=== PATIENT | male | born 1960 ===

== ENCOUNTER 2018-09-01 11:02 | Outpatient (REF) | payer MEDICAID, SELFPAY ==
[2018-09-01 22:39] LABS: Cholesterol 232 mg/dL (50-200); HDL Cholesterol 28 mg/dL (40-60); LDL CHOLESTEROL 103 mg/dL (<100); Triglyceride 579 mg/dL (30-150)
[2018-09-01 22:47] LABS: COMMENT (LAB VIEW ONLY) 116.36 mg/dL
[2018-09-01 23:14] LABS: Hemoglobin A1C 10.9 % (4.5-6.2)
== END 2018-09-01 11:22 ==
LOC: NCHCN 11:02
PROVIDERS: PCP Internal Medicine; Visit Provider Internal Medicine
DX: E11.9 Type 2 diabetes mellitus without complications (principal)
CPT/HCPCS: 80061; 83721; 82043; 82570; 83036

== ENCOUNTER 2019-08-30 11:56 | Outpatient (REF) | payer MEDICAID, SELFPAY ==
[2019-08-30 20:59] LABS: ALT 31 U/L (16-63); AST 15 U/L (15-37); Albumin 4.1 g/dL (3.4-5.0); Alkaline Phosphatase 96 U/L (46-116); Anion Gap 6.3 mmol/L (3-11); BUN 26 mg/dL (7-18); Bilirubin, Total 0.3 mg/dL (0.2-1.0); CO2 28.7 mmol/L (21.0-32.0); CREATININE 1.49 mg/dL (0.70-1.30); Calcium 9.1 mg/dL (8.5-10.1); Chloride 101 mmol/L (98-107); Estimated GFR 48.11 (mL/min/1.73m2); Glucose 322 mg/dL (74-106); Potassium 4.9 mmol/L (3.5-5.1); Sodium 136 mmol/L (136-145); TSH (W/Ref FT4) 2.95 uIU/mL (0.36-3.74); Total Protein 7.1 g/dL (6.4-8.2)
[2019-08-30 21:27] LABS: Cholesterol 188 mg/dL (<200); HDL Cholesterol 28 mg/dL (40-60); Triglyceride 469 mg/dL (<150)
[2019-08-30 22:09] LABS: LDL CHOLESTEROL 86 mg/dL (<100)
== END 2019-08-30 12:16 ==
LOC: NCHCN 11:56
PROVIDERS: PCP Internal Medicine; Visit Provider Family Medicine
DX: E11.9 Type 2 diabetes mellitus without complications (principal); E03.9 Hypothyroidism, unspecified; I10 Essential (primary) hypertension
CPT/HCPCS: 80053; 80061; 83721; 84443

== ENCOUNTER 2020-01-19 20:54 | Outpatient (REF) | payer MEDICAID, SELFPAY ==
[2020-01-19 21:56] LABS: COMMENT (LAB VIEW ONLY) 60.17 mg/dL; Microalb ug/mg Crea 20.4 ug/mg Cr
== END 2020-01-19 21:14 ==
LOC: NCHCN 20:54
PROVIDERS: PCP Internal Medicine; Visit Provider Nurse Practitioner Family
DX: I10 Essential (primary) hypertension (principal); N18.30 Chronic kidney disease, stage 3 unspecified; E11.9 Type 2 diabetes mellitus without complications; E66.9 Obesity, unspecified
CPT/HCPCS: 82043; 82570

== ENCOUNTER 2020-06-04 16:53 | Outpatient (REF) | payer MEDICAID, SELFPAY ==
[2020-06-07 12:48] LABS: Testosterone, Total 328 ng/dL (240-950)
== END 2020-06-04 16:54 | disposition home or self-care (01) ==
LOC: NCHCN 16:53
PROVIDERS: PCP Internal Medicine; Visit Provider Internal Medicine
DX: E03.9 Hypothyroidism, unspecified (principal)
CPT/HCPCS: 84402; 84403

== ENCOUNTER 2021-05-20 21:17 | Outpatient (REF) | payer MEDICAID, SELFPAY ==
[2021-05-20 21:17] LABS: Microalb ug/mg Crea 25.9 ug/mg Cr
[2021-05-20 21:18] LABS: Anion Gap 9.2 mmol/L (3-11); BUN 18 mg/dL (7-18); CO2 25.8 mmol/L (21.0-32.0); CREATININE 1.2 mg/dL (0.70-1.30); Calcium 8.6 mg/dL (8.5-10.1); Calculated LDL 65 mg/dL (<100); Chloride 106 mmol/L (98-107); Cholesterol 171 mg/dL (<200); Glucose 166 mg/dL (74-106); HDL Cholesterol 31 mg/dL (40-60); Potassium 4.9 mmol/L (3.5-5.1); Sodium 141 mmol/L (136-145); Triglyceride 377 mg/dL (<150)
[2021-05-21 12:40] LABS: TSH 2.73 uIU/mL (0.36-3.74)
== END 2021-05-20 21:18 | disposition home or self-care (01) ==
LOC: NCHCN 21:17
PROVIDERS: PCP Internal Medicine; Visit Provider Internal Medicine
DX: E03.9 Hypothyroidism, unspecified (principal); N18.30 Chronic kidney disease, stage 3 unspecified; E11.9 Type 2 diabetes mellitus without complications; I10 Essential (primary) hypertension
CPT/HCPCS: 80048; 80061; 82043; 82570; 84443

== ENCOUNTER 2022-04-10 17:23 | Outpatient (REF) | payer MEDICAID, SELFPAY ==
[2022-04-10 22:20] LABS: COMMENT (LAB VIEW ONLY) 42.63 mg/dL; Microalb ug/mg Crea 28.6 ug/mg Cr
== END 2022-04-10 17:24 | disposition home or self-care (01) ==
LOC: NCHCN 17:23
PROVIDERS: PCP Internal Medicine; Visit Provider Internal Medicine
DX: E11.9 Type 2 diabetes mellitus without complications (principal)
CPT/HCPCS: 82043; 82570

== ENCOUNTER 2023-05-08 14:46 | Outpatient (REF) | payer MEDICAID, SELFPAY ==
--- OUTSIDE RECORDS SUMMARY | 2023-05-08 14:48 | XMS_ITS | CCD ---
Author Name Unknown Address [address] [place] [address] [phone] Organization Unknown Address [address] [place] [address] [phone] Care Team Providers Care Client Program Manager Name Role Phone PANKAJ VILLALOBOS Attending Physician [phone] Vital Signs Unknown or Not Available. Allergies Allergy Code Allergy Type Reaction Status No Known Drug Allergies 0 No known drug allergies Active Procedures Unknown or Not Available. History of Immunizations Unknown or Not Available. Problems Unknown or Not Available. Results Unknown or Not Available. Active Medications Unknown or Not Available. Medications Administered During Visit Unknown or Not Available. Encounters Encounter Diagnosis Diagnosis Code Start Date Other intervertebral disc displacement, lumbar r egion [id number] 02/18/2023 Social History Smoking Status Code Start Date End Date Never smoker [id number] Patient Decision Aids Unknown or Not Available. Discharge Instructions You were admitted to [facility] on 02/18/2023 13:26 with a principal diagnosis of Other intervertebral disc displacement, lumbar region You were discharged from [facility] on 02/18/2023 13:26 Should you have any questions prior to discharge, please contact a member of your healthcare team. If you have left the hospital and have any questions, please contact your primary care physician. Chief Complaint and Reason For Visit Chief Complaint Date of Onset LT LEG WEAKNESS Function Status Unknown or Not Available. Plan of Care Unknown or Not Available. Referral/Transition of Care Unknown or Not Available.
--- OUTSIDE RECORDS SUMMARY | 2023-05-08 14:49 | XMS_ITS | CCD ---
Author Name Unknown Address [address] [place] [address] [phone] Organization Unknown Address [address] [place] [address] [phone] Care Team Providers Care Vacation Sales Advisor Name Role Phone PANKAJ VILALLOBOS Attending Physician [phone] Vital Signs Unknown or Not Available. Allergies [...] Encounters Encounter Diagnosis Diagnosis Code Start Date Disorder of lumbar disc [id number] 03/19/20 23 Social History Smoking Status Code Start Date End Date Never smoker [id number] Patient Decision Aids Unknown or Not Available. Discharge Instructions You were admitted to [facility] on 03/19/2023 13:24 with a principal diagnosis of Other intervertebral disc disorders, lumbar region You were discharged from [facility] on 03/19/2023 13:24 Should you have any questions prior to discharge, please contact a member of your healthcare team. If you have left the hospital and have any questions, please contact your primary care physician. Chief Complaint and Reason For Visit Unknown or Not Available. Function Status Unknown or Not Available. Plan of Care Unknown or Not Available. Referral/Transition of Care Unknown or Not Available.
[2023-05-08 21:12] LABS: HCT 42.2 % (40.0-50.0); HGB 14.4 g/dL (13.5-17.5); MCH 29.4 pg (27.0-33.0); MCHC 34.1 % (32.0-36.0); MCV 86 fL (80-95); MPV 12.2 fL (8.0-11.0); Platelet Count 163 10^3/uL (130-400); RBC 4.89 10^6/uL (4.36-5.78); RDW 13.2 % (11.8-14.1); RDW-SD 41.3 fL; WBC 5.99 10^3/uL (4.4-10.8)
[2023-05-08 21:24] LABS: ALT 26 U/L (16-63); AST 14 U/L (15-37); Albumin 3.7 g/dL (3.4-5.0); Alkaline Phosphatase 122 U/L (46-116); Anion Gap 4.6 mmol/L (3-11); BUN 25 mg/dL (7-18); Bilirubin, Total 0.3 mg/dL (0.2-1.0); CO2 29.4 mmol/L (21.0-32.0); CREATININE 1.3 mg/dL (0.70-1.30); Calcium 8.9 mg/dL (8.5-10.1); Chloride 103 mmol/L (98-107); Cholesterol 162 mg/dL (<200); Estimated GFR 61.35 (mL/min/1.73m2); Glucose 349 mg/dL (74-106); HDL Cholesterol 34 mg/dL (40-60); Potassium 4.5 mmol/L (3.5-5.1); Sodium 137 mmol/L (136-145); Total Protein 6.9 g/dL (6.4-8.2); Triglyceride 402 mg/dL (<150)
[2023-05-08 21:37] LABS: COMMENT (LAB VIEW ONLY) 54.91 mg/dL; Microalb ug/mg Crea 32.8 ug/mg Cr
[2023-05-08 21:38] LABS: LDL CHOLESTEROL 64 mg/dL (<100)
== END 2023-05-08 14:47 | disposition home or self-care (01) ==
LOC: NCHCN 14:46
PROVIDERS: PCP Internal Medicine; Visit Provider Internal Medicine
DX: E11.9 Type 2 diabetes mellitus without complications (principal)
CPT/HCPCS: 80053; 80061; 83721; 85027; 82043; 82570

== ENCOUNTER 2023-05-21 09:50 | Outpatient (REF) | payer MEDICAID, SELFPAY ==
[2023-05-21 15:20] LABS: ALT 25 U/L (16-63); AST 12 U/L (15-37); Albumin 3.8 g/dL (3.4-5.0); Alkaline Phosphatase 129 U/L (46-116); Anion Gap 11.9 mmol/L (3-11); BUN 21 mg/dL (7-18); Bilirubin, Total 0.4 mg/dL (0.2-1.0); CO2 27.1 mmol/L (21.0-32.0); CREATININE 1.4 mg/dL (0.70-1.30); Calcium 8.8 mg/dL (8.5-10.1); Chloride 103 mmol/L (98-107); Estimated GFR 56.13 (mL/min/1.73m2); Glucose 338 mg/dL (74-106); Potassium 4.5 mmol/L (3.5-5.1); Sodium 142 mmol/L (136-145); Total Protein 6.8 g/dL (6.4-8.2)
[2023-05-21 15:35] LABS: Vitamin D 25 Total 39.8 ng/mL (30-100)
[2023-05-21 17:06] LABS: GGT 36 U/L (15-85)
== END 2023-05-21 09:51 | disposition home or self-care (01) ==
LOC: NCHCN 09:50
PROVIDERS: PCP Internal Medicine; Visit Provider Internal Medicine
DX: R74.8 Abnormal levels of other serum enzymes (principal)
CPT/HCPCS: 80053; 82306; 82977

== ENCOUNTER 2023-07-01 08:42 | Outpatient (REF) | payer MEDICAID, SELFPAY ==
[2023-07-01 15:00] LABS: Alkaline Phosphatase 126 U/L (46-116); TSH 6.78 uIU/Ml (0.36-3.74)
[2023-07-03 17:47] LABS: ALT 26 U/L (16-63); AST 11 U/L (15-37); Albumin 3.8 g/dL (3.4-5.0); Alkaline Phosphatase 130 U/L (46-116); Bilirubin, Direct 0.1 mg/dL (0.0-0.2); Bilirubin, Total 0.3 mg/dL (0.2-1.0); Total Protein 6.7 g/dL (6.4-8.2)
[2023-07-06 09:57] LABS: PSA, Screening 0.6 ng/mL (<=4.5)
[2023-07-06 10:03] LABS: Parathyroid Hormone,Intact 55 pg/mL (19-88)
== END 2023-07-01 08:43 | disposition home or self-care (01) ==
LOC: NCHCN 08:42
PROVIDERS: PCP Internal Medicine; Visit Provider Internal Medicine
DX: R74.8 Abnormal levels of other serum enzymes (principal); Z12.5 Encounter for screening for malignant neoplasm of prostate; E03.9 Hypothyroidism, unspecified
CPT/HCPCS: 80076; 84153; 83970; 84075; 84100; 84443

== ENCOUNTER 2023-08-27 08:08 | Outpatient (REF) | payer MEDICAID, SELFPAY ==
[2023-08-27 16:05] LABS: Hemoglobin A1C 10.1 % (<5.7)
[2023-08-27 16:57] LABS: ALT 28 U/L (16-63); AST 17 U/L (15-37); Alkaline Phosphatase 119 U/L (46-116); Bilirubin, Direct 0.1 mg/dL (0.0-0.2); Bilirubin, Total 0.3 mg/dL (0.2-1.0); TSH 4.05 uIU/Ml (0.36-3.74)
== END 2023-08-27 08:09 | disposition home or self-care (01) ==
LOC: NCHCN 08:08
PROVIDERS: PCP Internal Medicine; Visit Provider Internal Medicine
DX: E03.9 Hypothyroidism, unspecified (principal); R74.8 Abnormal levels of other serum enzymes; E11.9 Type 2 diabetes mellitus without complications
CPT/HCPCS: 80076; 83036; 84443

== ENCOUNTER 2024-08-24 10:42 | Outpatient (REF) | payer MEDICARE, MEDICAID, SELFPAY ==
[2024-08-24 14:34] LABS: Abs Immature Grans 0.02 10^3/uL (0.0-0.06); Absolute Basophil Count 0.03 10^3/uL (0.0-0.2); Absolute Eosinophil Count 0.12 10^3/uL (0.0-0.7); Absolute Lymphocyte Count 1.18 10^3/uL (1.2-3.4); Absolute Neutrophil Count 4.24 10^3/uL (1.2-6.7); Basophils % 0.5 %; Eosinophils % 1.9 %; HCT 46.7 % (40.0-50.0); Immature Grans % 0.3 %; Lymphocytes % 19.1 %; MCH 30.3 pg (27.0-33.0); MCHC 34.3 % (32.0-36.0); MCV 88 fL (80-95); MPV 12.2 fL (8.0-11.0); Monocytes % 9.7 %; Neutrophils % 68.5 %; Platelet Count 195 10^3/uL (130-400); RBC 5.28 10^6/uL (4.36-5.78); RDW 13.3 % (11.8-14.1); RDW-SD 42.9 fL; WBC 6.19 10^3/uL (4.4-10.8)
[2024-08-24 14:56] LABS: COMMENT (LAB VIEW ONLY) 170.19 mg/dL; Microalb ug/mg Crea 22.5 ug/mg Cr
[2024-08-24 15:01] LABS: ALT 23 U/L (16-63); AST 17 U/L (15-37); Albumin 3.8 g/dL (3.4-5.0); Alkaline Phosphatase 120 U/L (46-116); Anion Gap 8.4 mmol/L (3-11); BUN 23 mg/dL (7-18); Bilirubin, Total 0.5 mg/dL (0.2-1.0); CO2 26.6 mmol/L (21.0-32.0); CREATININE 1.6 mg/dL (0.70-1.30); Calcium 9.2 mg/dL (8.5-10.1); Chloride 102 mmol/L (98-107); Estimated GFR 47.52 (mL/min/1.73m2); Glucose 231 mg/dL (74-106); Potassium 4.4 mmol/L (3.5-5.1); Sodium 137 mmol/L (136-145); TSH 3.39 uIU/mL (0.36-3.74); Total Protein 7.3 g/dL (6.4-8.2)
== END 2024-08-24 10:43 | disposition home or self-care (01) ==
LOC: NCHCN 10:42
PROVIDERS: PCP Internal Medicine; Visit Provider Internal Medicine
DX: E03.9 Hypothyroidism, unspecified (principal); Z79.4 Long term (current) use of insulin; E11.9 Type 2 diabetes mellitus without complications; K92.0 Hematemesis
CPT/HCPCS: 80053; 82043; 82570; 84443; 85025

== ENCOUNTER 2024-09-26 15:38 | Outpatient (REF) | payer MEDICARE, MEDICAID, SELFPAY ==
[2024-09-26 16:06] LABS: Anion Gap 8.1 mmol/L (3-11); BUN 23 mg/dL (7-18); CO2 27.9 mmol/L (21.0-32.0); CREATININE 1.4 mg/dL (0.70-1.30); Calcium 9.2 mg/dL (8.5-10.1); Chloride 106 mmol/L (98-107); Estimated GFR 55.43 (mL/min/1.73m2); Glucose 173 mg/dL (74-106); Potassium 4.6 mmol/L (3.5-5.1); Sodium 142 mmol/L (136-145); TSH 2.91 uIU/mL (0.36-3.74)
== END 2024-09-26 15:39 | disposition home or self-care (01) ==
LOC: NCHCN 15:38
PROVIDERS: PCP Internal Medicine; Visit Provider Internal Medicine
DX: E03.9 Hypothyroidism, unspecified (principal)
CPT/HCPCS: 80048; 84443